=== PATIENT | male | born 1945 | race Hispanic/Latino ===

== ENCOUNTER 2018-08-17 11:12 | Day surgery (SDC) | payer OTHER ==
[~2018-08-17 11:12] MED LIST: NACL 0.9% 1000 ML 1,000 ML IV SCH
[2018-08-17] MEDS ORDERED: VERSED ONE (13:17)
--- NOTE | 2018-08-17 13:18 | Anesthesia Day of Surgery ---
Anesthesia Day of Surgery - Day of Surgery Patient Examined: Yes Patient H&P Reviewed: Yes Patient is NPO: Yes Beta Blockers: No
--- NOTE | 2018-08-17 13:19 | Anesthesia Consultation ---
Anesthesia Consult and Med Hx - Airway Anesthetic Teeth Evaluation: Poor ROM Head & Neck: Adequate Mental/Hyoid Distance: Adequate Mallampati Class: Class II Intubation Access Assessment: Probably Good - Pulmonary Exam CTA: Yes - Cardiac Exam Cardiac Exam: No Murmur - Pre-Operative Health Status ASA Pre-Surgery Classification: ASA3 Proposed Anesthetic Plan: MAC - Pulmonary Hx Smoking: Yes (STOPPED 40 YRS AGO, STOPPED POT 30 YRS AGO) Hx Asthma: Yes Hx Pneumonia: Yes (04/2018) - Cardiovascular System Hx Hypertension: Yes - Central Nervous System CVA: Yes Hx Back Pain: Yes - Endocrine Hx Liver Disease: Yes (LIVER SURGERY FOR CA 10 YRS AGO) - Hematic Hx Anemia: Yes
[2018-08-17] MEDS ORDERED: DIPRIVAN 10 MG/ML IV ONE ×2 (13:58)
[2018-08-17] MEDS ORDERED: WATER FOR IRRIG STERILE ONE (14:03)
--- NOTE | 2018-08-17 14:55 | Operative Report ---
Operative Report Operative Report: Date of procedure: 08/17/2018 Procedure: Colonoscopy with Snare polypectomy of sigmoid colon polyp, Hot Biopsy Polypectomy of proximal ascending colon polyp, Ablation of descending colon polyp and submucosal injection, with Hemoclip Clip application. Attending physician: Heladio Farrar M.D. Media Strategist: Heladio Farrar M.D. Indication: Patient is a 73-year-old male who presents for colonoscopy. Patient has a history of generalized abdominal pain, history of weight loss and iron deficiency anemia. This colonoscopy serves to evaluate patient so that treatment may be directed based on the findings. Consent: Informed consent was obtained after advising the patient and family regarding nature of this procedure, its indications, potential benefits as well as possible complications including but not limited to bleeding perforation and adverse reaction to medication, infection as well as other cardiopulmonary complications. An informed written and verbal consent was then obtained after due opportunity was provided for questions and answers. Monitoring: Patient was monitored continuously with pulse oximetry and electrocardiographic recordings as well as blood pressure recordings. Vital signs remained stable throughout this procedure with no untoward events. Preoperative assessment: Patient was assessed immediately prior to this procedure for capacity to tolerate monitored anesthesia care and moderate sedation as well as general anesthesia. Patient's ASA classification is 2, Mal lampati class is 2, Hyomental distance is 3. Instrument: [employer] video colonoscope Medications: Propofol given intravenously in divided doses. For details please refer to anesthesia records. Description of procedure: Patient was placed in the left lateral decubitus position after achieving sedation, a digital rectal examination was performed following which the colonoscope was introduced into the anal verge and advanced to the cecum which was identified by the cecal valve, the appendiceal orifice, as well as by the cecal strap and direct transillumination. The colonoscope was subsequently withdrawn with careful inspection of all mucosal surfaces. Patient tolerated this procedure well and was subsequently taken to the recovery room. The following findings were noted. Findings: Patient had a sessile polyp seen in the ascending colon measuring about 8 mm . This was removed by hot biopsy polypectomy and a Hemoclip was placed at the polypectomy site. The polyp was retrieved. There was a 10 mm sessile polyp in the sigmoid colon It was elevated with submucosal injection of saline and removed by snare polypectomy. A Hemoclip was placed over the defect from the polypectomy site. There was another 3-4 mm polyp in the descending colon which was ablated. Patient had substantial retained stool in sections of the colon. The preparation was relatively poor. There were diverticula seen in the sigmoid colon descending colon and ascending colon. Patient was noted to have prominent large internal hemorrhoids seen on the retroflexed view at the anal verge. Impression: Ascending colon polyp status post hot biopsy polypectomy and Hemoclip application. Sigmoid colon polyp status post submucosal injection with snare polypectomy. Descending colon polyp status post ablation Diverticular disease of the sigmoid colon. Retained stool Prominent internal hemorrhoids. Plan: Follow pathology report. High-fiber diet. Patient most likely will benefit from hemorrhoidal band ligation given the size of his internal hemorrhoids.
--- NOTE | 2018-08-17 14:56 | Discharge Summary ---
Short Stay Discharge Plan Activity: advance as tolerated Weight Bearing Status: Weight Bear as Tolerated Diet: regular Follow up with: PRIMARY CARE, [Primary Care Provider] - 7 Days
[2018-08-17 15:22] VITALS: BP 143/81
== END 2018-08-17 11:13 | disposition home or self-care (01) ==
LOC: GIO 11:12
PROVIDERS: ATTEND Internal Medicine Gastroenterology
DX: D12.5 Benign neoplasm of sigmoid colon (principal); D12.2 Benign neoplasm of ascending colon; K57.30 Diverticulosis of large intestine without perforation or abscess without bleeding; K64.8 Other hemorrhoids; D50.9 Iron deficiency anemia, unspecified; E78.00 Pure hypercholesterolemia, unspecified; I10 Essential (primary) hypertension; J45.909 Unspecified asthma, uncomplicated; K21.9 Gastro-esophageal reflux disease without esophagitis; F32.9 Major depressive disorder, single episode, unspecified; F41.9 Anxiety disorder, unspecified; Z79.899 Other long term (current) drug therapy; Z79.84 Long term (current) use of oral hypoglycemic drugs; Z87.891 Personal history of nicotine dependence; Z86.73 Personal history of transient ischemic attack (TIA), and cerebral infarction without residual deficits
CPT/HCPCS: 45381; 45384; 45385; 45388; 82962; 88305; J2250; J2704; J7030